=== PATIENT | female | born 1945 | race Caucasian/White ===

== ENCOUNTER 2018-02-26 14:28 | Inpatient (IN) | payer MEDICARE ==
[2018-02-26 14:59] LABS: VENOUS BLOOD BASE EXCESS 3.3 mmol/L; VENOUS BLOOD HCO3 29.6 mmol/L (20-32); VENOUS BLOOD PCO2 50.8 mmHg (35-63); VENOUS BLOOD PH 7.38 (7.30-7.42)
[2018-02-26 15:00] LABS: HEMATOCRIT 44.1 % (36.0-47.0); HEMOGLOBIN 14.7 g/dL (12.0-15.5); MEAN CORPUSCULAR HEMOGLOBIN 29.7 pg (27.0-33.4); MEAN CORPUSCULAR HGB CONC 33.2 g/dL (32.0-36.0); MEAN CORPUSCULAR VOLUME 90 fl (80-97); PLATELET COUNT 369 10^3/uL (150-450); RED BLOOD COUNT 4.93 10^6/uL (3.72-5.28); RED CELL DISTRIBUTION WIDTH 14.1 % (11.5-14.0); WHITE BLOOD COUNT 22.7 10^3/uL (4.0-10.5)
[2018-02-26 15:03] LABS: INTERNATIONAL RATION (INR) 1.12
[2018-02-26 15:14] LABS: ALANINE AMINOTRANSFERASE 17 U/L (9-52); ALBUMIN 3.6 g/dL (3.5-5.0); ALKALINE PHOSPHATASE 86 U/L (38-126); ANION GAP 10 (5-19); ASPARTATE AMINO TRANSFERASE 24 U/L (14-36); BILIRUBIN,DIRECT 0.2 mg/dL (0.0-0.4); BILIRUBIN,TOTAL 0.8 mg/dL (0.2-1.3); BLOOD UREA NITROGEN 9 mg/dL (7-20); CALCIUM 9.1 mg/dL (8.4-10.2); CARBON DIOXIDE 28 mmol/L (22-30); CHLORIDE 96 mmol/L (98-107); GLUCOSE 131 mg/dL (75-110); POTASSIUM 4.4 mmol/L (3.6-5.0); SODIUM 133.6 mmol/L (137-145); TOTAL PROTEIN 6.5 g/dL (6.3-8.2)
[2018-02-26 15:28] LABS: ABSOLUTE LYMPHOCYTES# (MANUAL) 0.5 10^3/uL (0.5-4.7); ABSOLUTE MONOCYTES # (MANUAL) 0.7 10^3/uL (0.1-1.4); ABSOLUTE NEUTROPHILS# (MANUAL) 21.6 10^3/uL (1.7-8.2); BAND NEUTROPHILS % (MANUAL) 5 % (3-5); BASOPHILS % (MANUAL) 0 % (0-2); EOSINOPHILS % (MANUAL) 0 % (0-6); LYMPHOCYTES % (MANUAL) 2 % (13-45); MONOCYTES % (MANUAL) 3 % (3-13); SEGMENTED NEUTROPHILS % (MAN) 90 % (42-78); TOTAL CELLS COUNTED 100
[2018-02-26 15:29] LABS: ANISOCYTOSIS SLIGHT; PLATELET COMMENT ADEQUATE; TOXIC VACUOLATION PRESENT
[2018-02-26] MEDS ORDERED: AZITHROMYCIN INJ 500 MG VIAL IV ONE (15:34)
[2018-02-26] MEDS ORDERED: IPRATROPIUM/ALBUTEROL 0.5-2.5 MG/3 ML AMPUL NEB ONE (15:34)
[2018-02-26] MEDS ORDERED: CEFTRIAXONE INJ 1000 MG VIAL IV ONE (15:35)
--- NOTE | 2018-02-26 17:29 | ER Document Report ---
ED General - General Chief Complaint: Shortness Of Breath Stated Complaint: ABNORMAL LABS,SHORT OF BREATH Time Seen by Provider: 02/26/18 14:48 Notes: Patient is a 72-year-old female with COPD that presents to the emergency department for chief complaint of cough and shortness of breath. Patient states that she started having cough yesterday and developed shortness of breath as well. She went to see the urgent care today, they diagnosed her with pneumonia, gave her some Solu-Medrol injection and advised her to come to the ED. She did get a breathing treatment over there, that did give her some relief. She is not on home oxygen. She did give herself 40 mg of prednisone this morning as well thinking it may help with her breathing. She is not chronically on prednisone therapy however. She uses Spiriva, and an albuterol inhaler. She denies having any associated chest pain, she is had some chills but no documented fevers, no nausea no vomiting, abdominal pain, dysuria or hematuria. Past Medical History: COPD, tachydysrhythmia Past Surgical History: Cholecystectomy, cataract surgery Social History: Former smoker, currently living in [place]. Family History: Reviewed and noncontributory for presenting illness Allergies: Reviewed, see documented allergy list. REVIEW OF SYSTEMS: Other than noted above, the 12 point review of systems was reviewed with the patient and were negative, all pertinent findings are included in the HPI. PHYSICAL EXAMINATION: Vital signs reviewed, nursing noted reviewed. GENERAL: Elderly female, in moderate respiratory distress HEAD: Atraumatic, normocephalic. EYES: Eyes appear normal, extraocular movements intact, sclera anicteric, conjunctiva are normal. ENT: nares patent, oropharynx clear without exudates. Moist mucous membranes. NECK: Normal range of motion, supple without lymphadenopathy LUNGS: Lung sounds are diminished, with expiratory wheezing noted throughout all lung graf. Increased work of breathing. HEART: Heart rate tachycardic, regular rhythm. ABDOMEN: Soft, nontender, normoactive bowel sounds. No rebound, guarding, or rigidity. No masses appreciated. EXTREMITIES: Nontender, good range of motion, no pitting or edema. NEUROLOGICAL: No focal neurological deficits. Moves all extremities spontaneously Motor and sensory grossly intact on exam. PSYCH: Normal mood, normal affect. SKIN: Warm, Dry, normal turgor, no rashes or lesions noted on exposed skin TRAVEL OUTSIDE OF THE [place] IN LAST 30 DAYS: No - Related Data Allergies/Adverse Reactions: No Known Allergies Allergy (Verified 02/26/18 14:33) Home Medications: metoprolol. spiriva. pro-air. singular. estrodial Past Medical History - Social History Smoking Status: Former Smoker Frequency of alcohol use: None Drug Abuse: None Family History: Reviewed & Not Pertinent Patient has suicidal ideation: No Patient has homicidal ideation: No Pulmonary Medical History: Reports: Hx COPD Renal/ Medical History: Denies: Hx Peritoneal Dialysis Past Surgical History: Reports: Hx Cholecystectomy, Hx Orthopedic Surgery - r ight hand, Hx Tubal Ligation Physical Exam - Vital signs Vitals: Temp Pulse Resp BP Pulse Ox 98.5 F 110 H 22 H 97/39 L 86 L 02/26/18 14:39 02/26/18 14:39 02/26/18 14:39 02/26/18 14:39 02/26/18 14:39 Course - Re-evaluation Re-evalutation: Patient seen and examined vital signs reviewed. Laboratory data and imaging were ordered as appropriate for the patient's presenting symptoms and complaint, with consideration of any critical or life th reatening conditions that may be associated with their obtained history and exam as noted above. Patient was treated with DuoNeb breathing treatments, was already given steroid at urgent care, and started her on IV erythromycin and Rocephin. Results were reviewed when available and demonstrated chest x-ray was pulled out from the patient states that she sent over, which did demonstrate a faint right lower lobe infiltrate, she did have a leukocytosis on her blood work well. The patient was re-evaluated and was hypoxic after being taken off of oxygen despite breathing treatments, and budesonide therapy. At this point I feel that the patient should be admitted to the hospital, given that she is on home oxygen therapy, and has hypoxic on room air. I do not believe the patient is septic, although she does have a leukocytosis, and was tachycardic, she did receive DuoNeb breathing treatments prior to ED arrival, and has a history of a tachydysrhythmia, lactic acid was normal, and therefore I do not feel the patient needs IV fluid bolusing, and from my standpoint this has been ruled out. Evaluation was most consistent with acute exacerbation of COPD, community- acquired pneumonia, leukocytosis Results were discussed with the patient at this point after careful consideration I feel that that patient should be admitted to the hospital. This was discussed with the patient that it is in the best interest for their care to be admitted for further evaluation and management. Patient agreed with this plan of care. A call was placed to the admitted physician, Dr. Jimenez who graciously accepted the patient onto their service. *Note is created using voice recognition software and may contain spelling, syntax or grammatical errors. Laboratory 02/26/18 02/26/18 02/26/18 14:45 14:45 14:45 WBC 22.7 H RBC 4.93 Hgb 14.7 Hct 44.1 MCV 90 MCH 29.7 MCHC 33.2 RDW 14.1 H Plt Count 369 Total Counted 100 Seg Neutrophils % Not Reportable Seg Neuts % (Manual) 90 H Band Neutrophils % 5 Lymphocytes % Not Reportable Lymphocytes % (Manual) 2 L Monocytes % Not Reportable Monocytes % (Manual) 3 Eosinophils % Not Reportable Eosinophils % (Manual) 0 Basophils % Not Reportable Basophils % (Manual) 0 Absolute Neutrophils Not Reportable Abs Neuts (Manual) 21.6 H Absolute Lymphocytes Not Reportable Abs Lymphs (Manual) 0.5 Absolute Monocytes Not Reportable Abs Monocytes (Manual) 0.7 Absolute Eosinophils Not Reportable Absolute Eos (Manual) 0.0 Absolute Basophils Not Reportable Abs Basophils (Manual) 0.0 Toxic Vacuolation PRESENT Platelet Comment ADEQUATE Anisocytosis SLIGHT PT 15.0 INR 1.12 VBG pH VBG pCO2 VBG HCO3 VBG Base Excess Sodium 133.6 L Potassium 4.4 Chloride 96 L Carbon Dioxide 28 Anion Gap 10 BUN 9 Creatinine 0.54 Est GFR ( Amer) > 60 Est GFR (Non-Af Amer) > 60 Glucose 131 H Lactic Acid Calcium 9.1 Total Bilirubin 0.8 Direct Bilirubin 0.2 Neonat Total Bilirubin Not Reportable Neonat Direct Bilirubin Not Reportable Neonat Indirect Bili Not Reportable AST 24 ALT 17 Alkaline Phosphatase 86 Troponin I Total Protein 6.5 Albumin 3.6 02/26/18 02/26/18 02/26/18 14:45 14:45 14:45 WBC RBC Hgb Hct MCV MCH MCHC RDW Plt Count Total Counted Seg Neutrophils % Seg Neuts % (Manual) Band Neutrophils % Lymphocytes % Lymphocytes % (Manual) Monocytes % Monocytes % (Manual) Eosinophils % Eosinophils % (Manual) Basophils % Basophils % (Manual) Absolute Neutrophils Abs Neuts (Manual) Absolute Lymphocytes Abs Lymphs (Manual) Absolute Monocytes Abs Monocytes (Manual) Absolute Eosinophils Absolute Eos (Manual) Absolute Basophils Abs Basophils (Manual) Toxic Vacuolation Platelet Comment Anisocytosis PT INR VBG pH 7.38 VBG pCO2 50.8 VBG HCO3 29.6 VBG Base Excess 3.3 Sodium Potassium Chloride Carbon Dioxide Anion Gap BUN Creatinine Est GFR ( Amer) Est GFR (Non-Af Amer) Glucose Lactic Acid 1.4 Calcium Total Bilirubin Direct Bilirubin Neonat Total Bilirubin Neonat Direct Bilirubin Neonat Indirect Bili AST ALT Alkaline Phosphatase Troponin I < 0.012 Total Protein Albumin 02/26/18 19:54 - Vital Signs Vital signs: Temp Pulse Resp BP Pulse Ox 98.5 F 110 H 16 111/53 L 95 02/26/18 14:39 02/26/18 14:39 02/26/18 19:00 02/26/18 18:01 02/26/18 19:00 - Laboratory Result Diagrams: 02/26/18 14:45 02/26/18 14:45 Laboratory results interpreted by me: 02/26/18 02/26/18 14:45 14:45 WBC 22.7 H RDW 14.1 H Seg Neuts % (Manual) 90 H Lymphocytes % (Manual) 2 L Abs Neuts (Manual) 21.6 H Sodium 133.6 L Chloride 96 L Glucose 131 H - EKG Interpretation by Me Additional EKG results interpreted by me: EKG demonstrates sinus tachycardia with a ventricular rate of 100 bpm, left axis deviation, QTC 429 ms, no evidence of acute ischemia on this EKG, no old EKG for comparison. Critical Care Note - Critical Care Note Total time excluding time spent on procedures (mins): 38 Comments: Critical care time 38 minutes exclusive from separate billable procedures for a patient requiring complex medical decision making, and high potential for clinical deterioration. In a patient with hypoxia, secondary to pneumonia, and exacerbation of COPD, requiring intervention and treatment. Time spent obtaining history from patient or surrogate, discussions with consultants, development of treatment plan with patient or surrogate, evaluation of patient's response to treatment, examination of patient, ordering and performing treatments and interventions, ordering and review of laboratory studies, re-evaluation of patient's condition, ordering and review of radiographic studies and review of old charts Discharge - Discharge Clinical Impression: Acute and chronic respiratory failure with hypoxia Community acquired pneumonia Qualifiers: Laterality: right Lung location: lower lobe of lung Qualified Code(s): J18.1 - Lobar pneumonia, unspecified organism Leukocytosis Qualifiers: Leukocytosis type: unspecified Qualified Code(s): D72.829 - Elevated white bl ood cell count, unspecified Condition: Stable Disposition: ADMITTED INPATIENT Admitting Provider: Hospitalist - Dr. Jimenez Unit Admitted: Telemetry
--- NOTE | 2018-02-26 18:24 | PDOC H&P ---
History of Present Illness Admission Date/PCP: 02/26/18 17:58 History of Present Illness: JENNIFER KAUFMAN is a 72 year old female with a history of COPD who says she started getting short of breath last night. She took a nebulizer treatment at home and it did help for a short period of time. She denies any fevers. She said her cough has been producing some colored sputum. She went to an urgent care and apparently her SPO2 on room air was 85%. The urgent care did a chest x-ray we do not have those images in our system yet but I am told that there was a questionable left lower lobe infiltrate. She is improved after bronchodilator therapy here. Past Medical History Pulmonary Medical History: Reports: Chronic Obstructive Pulmonary Disease (COPD) Past Surgical History Past Surgical History: Reports: Cholecystectomy, Orthopedic Surgery - right hand, Tubal Ligation Social History Smoking Status: Former Smoker Family History Family History: Reviewed & Not Pertinent Parental Family History Reviewed: Yes - Noncontributory Children Family History Reviewed: Yes - Noncontributory Sibling(s) Family History Reviewed.: Yes - Noncontributory Medication/Allergy Allergies/Adverse Reactions: No Known Allergies Allergy (Verified 02/26/18 14:33) Review of Systems All systems: reviewed and no additional remarkable complaints except as stated - 10 point review of systems was conducted with the patient and was negative except as noted above Physical Exam Vital Signs: Temp Pulse Resp BP Pulse Ox 98.5 F 110 H 16 101/47 L 98 02/26/18 14:39 02/26/18 14:39 02/26/18 17:31 02/26/18 17:31 02/26/18 17:31 Intake & Output 02/25/18 02/26/18 02/27/18 06:59 06:59 06:59 Weight 47 kg General appearance: PRESENT: no acute distress, cooperative, disheveled, thin Head exam: PRESENT: atraumatic, normocephalic Eye exam: PRESENT: EOMI, PERRLA. ABSENT: conjunctival injection, nystagmus, scleral icterus Ear exam: PRESENT: normal external ear exam Mouth exam: PRESENT: moist, neck supple Throat exam: ABSENT: post pharyngeal erythema Neck exam: PRESENT: full ROM. ABSENT: carotid bruit, JVD, lymphadenopathy, meningismus, tenderness, thyromegaly Respiratory exam: PRESENT: decreased breath sounds - Diminished and coarse, prolonged expiratory phas, unlabored, wheezes - Primarily the left mid and lower lung graf. ABSENT: accessory muscle use, rhonchi, tachypnea Cardiovascular exam: PRESENT: tachycardia - She said she is chronically tachy cardic since 29 years of age Vascular exam: PRESENT: normal capillary refill GI/Abdominal exam: PRESENT: normal bowel sounds, soft. ABSENT: distended, guarding, rebound, tenderness Extremities exam: ABSENT: clubbing, pedal edema Musculoskeletal exam: PRESENT: ambulatory, normal inspection. ABSENT: deformity Neurological exam: PRESENT: alert, awake, oriented to person, oriented to place, oriented to time, oriented to situation, CN II-XII grossly intact. ABSENT: motor sensory deficit Psychiatric exam: PRESENT: appropriate affect, normal mood Skin exam: PRESENT: dry, rash - She has a rash on her face looks like rosacea, warm Results Laboratory Results: 02/26/18 14:45 02/26/18 14:45 02/26/18 02/26/18 02/26/18 14:45 14:45 14:45 WBC 22.7 H RBC 4.93 Hgb 14.7 Hct 44.1 MCV 90 MCH 29.7 MCHC 33.2 RDW 14.1 H Plt Count 369 Seg Neutrophils % Not Reportable Lymphocytes % Not Reportable Monocytes % Not Reportable Eosinophils % Not Reportable Basophils % Not Reportable Absolute Neutrophils Not Reportable Absolute Lymphocytes Not Reportable Absolute Monocytes Not Reportable Absolute Eosinophils Not Reportable Absolute Basophils Not Reportable VBG pH VBG pCO2 VBG HCO3 VBG Base Excess Sodium 133.6 L Potassium 4.4 Chloride 96 L Carbon Dioxide 28 Anion Gap 10 BUN 9 Creatinine 0.54 Est GFR ( Amer) > 60 Est GFR (Non-Af Amer) > 60 Glucose 131 H Lactic Acid 1.4 Calcium 9.1 Total Bilirubin 0.8 AST 24 ALT 17 Alkaline Phosphatase 86 Total Protein 6.5 Albumin 3.6 02/26/18 14:45 WBC RBC Hgb Hct MCV MCH MCHC RDW Plt Count Seg Neutrophils % Lymphocytes % Monocytes % Eosinophils % Basophils % Absolute Neutrophils Absolute Lymphocytes Absolute Monocytes Absolute Eosinophils Absolute Basophils VBG pH 7.38 VBG pCO2 50.8 VBG HCO3 29.6 VBG Base Excess 3.3 Sodium Potassium Chloride Carbon Dioxide Anion Gap BUN Creatinine Est GFR ( Amer) Est GFR (Non-Af Amer) Glucose Lactic Acid Calcium Total Bilirubin AST ALT Alkaline Phosphatase Total Protein Albumin 02/26/18 14:45 Troponin I < 0.012 Assessment & Plan - Diagnosis (1) Acute and chronic respiratory failure with hypoxia Is this a current diagnosis for this admission?: Yes Plan: She said she is supposed to be getting oxygen set up at home but does not have i t yet so I do not know if she actually has a chronic component or not. We have got her on supplemental O2 to maintain oxygen saturations greater than 90% (2) COPD with acute exacerbation Is this a current diagnosis for this admission?: Yes Plan: In addition of supplemental O2, were going to give her steroids, antibiotics, and nebulizer treatments. Once we find out what her home medications are we can resume those. - Time Time Spent: 50 to 70 Minutes - Inpatient Certification Based on my medical assessment, after consideration of the patient's comorbidities, presenting symptoms, or acuity I expect that the services needed warrant INPATIENT care.: Yes I certify that my determination is in accordance with my understanding of Medic are's requirements for reasonable and necessary INPATIENT services [42 CFR 412.3e].: Yes Medical Necessity: Need for Nebulizer Therapy and Monitoring of Response
[2018-02-26 18:26] LABS: APPEARANCE,URINE CLEAR; BILIRUBIN,URINE NEGATIVE (NEGATIVE); COLOR,URINE YELLOW; GLUCOSE, URINE >=500 mg/dL (NEGATIVE); KETONES,URINE 20 mg/dL (NEGATIVE); LEUKOCYTE ESTERASE,URINE NEGATIVE (NEGATIVE); NITRITE,URINE NEGATIVE (NEGATIVE); PROTEIN,URINE NEGATIVE (NEGATIVE); URINE SPECIFIC GRAVITY 1.008; UROBILINOGEN,URINE NEGATIVE mg/dL (<2.0)
[2018-02-26] MEDS: IPRATROPIUM/ALBUTEROL 0.5-2.5 MG/3 ML AMPUL NEB SCH (20:35)
[2018-02-26] MEDS ORDERED: METHYLPREDNISOLONE INJ 40 MG/1 ML SDV IV SCH (22:00)
--- NOTE | 2018-02-26 23:44 | EKG REPORT ---
SEVERITY:- OTHERWISE NORMAL ECG - SINUS TACHYCARDIA LEFT AXIS DEVIATION : Confirmed by: Isac Layton 26-Feb-2018 23:44:00
[2018-02-27] MEDS: IPRATROPIUM/ALBUTEROL 0.5-2.5 MG/3 ML AMPUL NEB SCH ×3 (02:32→13:40)
[2018-02-27 05:45] LABS: HEMATOCRIT 40.1 % (36.0-47.0); HEMOGLOBIN 13.4 g/dL (12.0-15.5); MEAN CORPUSCULAR HGB CONC 33.3 g/dL (32.0-36.0); MEAN CORPUSCULAR VOLUME 90 fl (80-97); PLATELET COUNT 366 10^3/uL (150-450); RED BLOOD COUNT 4.46 10^6/uL (3.72-5.28); RED CELL DISTRIBUTION WIDTH 14.3 % (11.5-14.0); WHITE BLOOD COUNT 19.5 10^3/uL (4.0-10.5)
[2018-02-27 06:00] LABS: ANION GAP 7 (5-19); BLOOD UREA NITROGEN 10 mg/dL (7-20); CALCIUM 8.9 mg/dL (8.4-10.2); CARBON DIOXIDE 31 mmol/L (22-30); CHLORIDE 100 mmol/L (98-107); GLUCOSE 153 mg/dL (75-110); POTASSIUM 4.4 mmol/L (3.6-5.0)
[2018-02-27] MEDS ORDERED: AZITHROMYCIN 250 MG TABLET PO SCH (10:00)
[2018-02-27] MEDS ORDERED: ENOXAPARIN SODIUM INJ 40 MG/0.4 ML DISP.SYRIN SUBCUT SCH (10:00)
[2018-02-27] MEDS ORDERED: PREDNISONE 20 MG TABLET PO SCH (10:00)
[2018-02-27 16:42] VITALS: BP 109/41
--- NOTE | 2018-02-27 17:10 | PDOC DISCHARGE SUMMARY ---
General - Admit/Disc Date/PCP Admission Date/Primary Care Provider: 02/26/18 17:58 Discharge Date: 02/27/18 - Discharge Diagnosis (1) Acute and chronic respiratory failure with hypoxia Is this a current diagnosis for this admission?: Yes Summary: This resolved with treatment of her acute conditions. We checked her out on room air she was 92%. (2) COPD with acute exacerbation Is this a current diagnosis for this admission?: Yes Summary: She improved quickly with steroids, nebulizers, and antibiotics. She will complete a burst of prednisone and a course of azithromycin at home. - Additional Information Resuscitation Status: Full Code Discharge Diet: Cardiac Discharge Activity: Activity As Tolerated Prescriptions: Azithromycin [Zithromax 250 mg Tablet] 500 mg PO DAILY #3 tablet Prednisone [Deltasone 20 mg Tablet] 40 mg PO DAILY #8 tablet Home Medications: Albuterol Sulfate [Proair HFA Inhalation Aerosol 8.5 gm MDI] 2 puff IH Q4 PRN 02/26/18 Estradiol [Estrace] 1 mg PO DAILY 02/26/18 Montelukast Sodium [Singulair 10 mg Tablet] 10 mg PO DAILY 02/26/18 Tiotropium [place] [Spiriva Respimat] 4 gm IH DAILY 02/26/18 Azithromycin [Zithromax 250 mg Tablet] 500 mg PO DAILY #3 tablet 02/27/18 Metoprolol Succinate [Toprol Xl] 50 mg PO DAILY 02/27/18 Prednisone [Deltasone 20 mg Tablet] 40 mg PO DAILY #8 tablet 02/27/18 History of Present Illness History of Present Illness: JENNIFER KAUFMAN is a 72 year old female with a history of COPD who says she started getting short of breath last night. She took a nebulizer treatment at home and it did help for a short period of time. She denies any fevers. She said her cough has been producing some colored sputum. She went to an urgent care and apparently her SPO2 on room air was 85%. The urgent care did a chest x-ray we do not have those images in our system yet but I am told that there was a questionable left lower lobe infiltrate. She is improved after bronchodilator therapy here. Hospital Course Hospital Course: She improved rather quickly with steroids, bronchodilators, antibiotics. We were able to take the oxygen off of her and her SPO2 was 92% on room air. She did not require oxygen but wanted to get it at home and was willing to pay out of pocket for it so we help her make that arrangement. Her labs and examination was reassuring and she was discharged home with her family in good condition. Physical Exam Vital Signs: Temp Pulse Resp BP Pulse Ox 98.0 F 111 H 20 110/57 L 89 L 02/27/18 16:26 02/27/18 16:26 02/27/18 16:26 02/27/18 16:26 02/27/18 16:26 Intake & Output 02/26/18 02/27/18 02/28/18 06:59 06:59 06:59 Intake Total 222 Balance 222 Weight 47.5 kg General appearance: PRESENT: no acute distress, cooperative, disheveled, thin Respiratory exam: PRESENT: decreased breath sounds, symmetrical, unlabored. ABSENT: accessory muscle use, crackles, rhonchi, tachypnea, wheezes Cardiovascular exam: PRESENT: tachycardia - She is chronically mildly tachycardic Vascular exam: PRESENT: normal capillary refill GI/Abdominal exam: PRESENT: normal bowel sounds, soft. ABSENT: distended, guarding, rebound, tenderness Extremities exam: ABSENT: clubbing, pedal edema Musculoskeletal exam: PRESENT: normal inspection. ABSENT: deformity Neurological exam: PRESENT: alert, awake, oriented to person, oriented to place, oriented to time, oriented to situation Psychiatric exam: PRESENT: appropriate affect, normal mood Skin exam: PRESENT: dry, warm Results Laboratory Results: 02/27/18 05:01 02/27/18 05:01 02/26/18 02/27/18 02/27/18 18:10 05:01 05:01 WBC 19.5 H RBC 4.46 Hgb 13.4 Hct 40.1 MCV 90 MCH 30.0 MCHC 33.3 RDW 14.3 H Plt Count 366 Sodium 138.0 Potassium 4.4 Chloride 100 Carbon Dioxide 31 H Anion Gap 7 BUN 10 Creatinine 0.48 L Est GFR ( Amer) > 60 Est GFR (Non-Af Amer) > 60 Glucose 153 H Calcium 8.9 Urine Color YELLOW Urine Appearance CLEAR Urine pH 6.0 Ur Specific [place] 1.008 Urine Protein NEGATIVE Urine Glucose (UA) >=500 H Urine Ketones 20 H Urine Blood MODERATE H Urine Nitrite NEGATIVE Ur Leukocyte Esterase NEGATIVE Urine WBC (Auto) 1 Urine RBC (Auto) 2 02/26/18 14:45 Troponin I < 0.012 Qualifiers - * PATIENT BEING DISCHARGED WITH ANY OF THE FOLLOWING DIAGNOSIS: No
== END 2018-02-27 17:00 | disposition home or self-care (01) | DRG 190 ==
LOC: ER 14:28 → EH 17:58 → 5 20:00
PROVIDERS: ADMIT Family Medicine; ATTEND Family Medicine
PROC: 3E0F73Z Introduction of Anti-inflammatory into Respiratory Tract, Via Natural or Artificial Opening (ICD-10-PCS; principal; 2018-02-26)
DX: J44.1 Chronic obstructive pulmonary disease with (acute) exacerbation (principal); J96.21 Acute and chronic respiratory failure with hypoxia; J18.1 Lobar pneumonia, unspecified organism; J44.0 Chronic obstructive pulmonary disease with (acute) lower respiratory infection; Z79.899 Other long term (current) drug therapy; Z90.49 Acquired absence of other specified parts of digestive tract; Z87.891 Personal history of nicotine dependence; Z98.49 Cataract extraction status, unspecified eye
CPT/HCPCS: 36415; 80048; 80053; 81001; 82803; 83605; 84484; 85025; 85027; 85610; 87040; 87086; 93005; 93010; 94640; 96365; 96367; 99291; J0456; J0696; J2920; J7512; J7620